=== PATIENT | female | born 1970 | race Caucasian/White ===

== ENCOUNTER 2019-10-31 18:45 | Emergency (ER) | payer OTHER ==
[~2019-10-31] VITALS: Ht 165.1 cm; Wt 98.0 kg
--- NOTE | 2019-10-31 18:51 | PHYS DOC ---
Past History Past Medical History: GERD, Hypertension, Hyperthyroid, Hypothyroid, Other Adult General Chief Complaint Chief Complaint: ".. I was at [facility] earlier today.. but I still got this pain and burning in my chest... " ".. They did a strep test was negative... 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 and take meds for that.. but I have been taking elderberry extract.. and I just read it can cause thyroid inflammation... " HPI HPI Patient is a 49 year old female who presents with above hx and complaints of so re throat. Patient seen at [facility] where she follows for care. Patient also follows with - Endocrine, for her Main thyroiditis. Strep test at [facility] was reportedly negative. No hx of specific ill contacts. Pt. does have history of GERD. Patient denies any history of cardiac issues. Patient did not receive flu vaccination this season. No history immunosuppression. . Denies any tarry stools. No change in her home medications Review of Systems Review of Systems Constitutional: Denies fever or chills [] Eyes: Denies change in visual acuity, redness, or eye pain [] HENT: Denies nasal congestion. Complaints of sore throat [] Respiratory: Denies cough or shortness of breath [] Cardiovascular: No additional information not addressed in HPI [] GI: Denies abdominal pain, nausea, vomiting, bloody stools or diarrhea [. Has complaints of reflux type symptoms : Denies dysuria or hematuria [] Musculoskeletal: Denies back pain or joint pain [] Integument: Denies rash or skin lesions [] Neurologic: Denies headache, focal weakness or sensory changes [] Endocrine: Denies polyuria or polydipsia [] All other systems were reviewed and found to be within normal limits, except as documented in this note. Family History Family History Noncontributory to presentation Current Medications Current Medications See nursing for home meds Allergies Allergies No known drug allergies Physical Exam Physical Exam Constitutional: Moderate acute distress, non-toxic appearance. [] HENT: Normocephalic, atraumatic, bilateral external ears normal, oropharynx moist, no oral exudates, nose swollen turbinates with mild rhinorrhea that is clear. Moderate injection of pharynx Eyes: PERRLA, EOMI, conjunctiva normal, no discharge. [] Neck: Normal range of motion, no tenderness, supple, no stridor. Thyroid is full. Not tender to touch or inflamed. No adenopathy Cardiovascular:Heart rate regular rhythm, no murmur [] Lungs & Thorax: Bilateral breath sounds equal apex auscultation [] Abdomen: Bowel sounds normal, soft, no tenderness, no masses, no pulsatile masses. Obese. Skin: Warm, dry, no erythema, no rash. [] Back: No tenderness, no CVA tenderness. [] Extremities: No tenderness, no cyanosis, no clubbing, ROM intact, no edema. [] Neurologic: Alert and oriented X 3, normal motor function, normal sensory function, no focal deficits noted. [] Psychologic: Affect anxious, judgement normal, mood normal. [] EKG EKG My interpretation EKG shows a sinus rhythm at 72 bpm. Does have a leftward axis. No findings acute STEMI with contralateral changes[] Radiology/Procedures Radiology/Procedures [][place] [address] IMAGING REPORT Signed PATIENT: QUEEINE MARQUES ACCOUNT: [id number] : 1970 LOCATION: ER AGE: 49 SEX: F EXAM STATUS: REG ER ORD. PHYSICIAN: HODAN ELKINS MD REASON: Chest and throat pain with burning sensation PROCEDURE: CHEST PA & LATERAL Exam: Chest 2 views INDICATION: Chest and throat pain with burning sensation TECHNIQUE: Frontal and lateral views the chest Comparisons: None FINDINGS: The cardiomediastinal silhouette and pulmonary vessels are within normal limits. The lung and pleural spaces are clear. IMPRESSION: No acute cardiopulmonary process. Electronically signed by: Angle Rendon MD (10/31/2019 8:29 PM) [id number] DICTATED AND SIGNED BY: ANGLE RENDON MD DATE: 10/31/192028 CC: HODAN ELKINS MD; JOHNNY FRANCIS MD ~ Course & Med Decision Making Course & Med Decision Making Pertinent Labs and Imaging studies reviewed. (See chart for details) Patient push fruit juices. Get adequate rest. Take Tylenol and ibuprofen for discomfort. Take antacids and practice GERD protocol. Stop use of the liver extract. Follow-up TSH labs. Follow-up at [facility]. Follow-up with endocrinology. Practice self isolation/self quarantine. Avoid crowds. Avoid travel. Follow-up with [facility] guidelines and recommendations per [place] . Use liquid ibuprofen and/or liquid Benadryl for topical relief of sore throat. Return if any concerns. Impression: 1. Chest Pain 2. GERD 3. Tobacco Use 4. History of Main's disease 5. Mild hypokalemia 3.2 [] Dragon Disclaimer Dragon Disclaimer This electronic medical record was generated, in whole or in part, using a voice recognition dictation system. Departure Departure: Disposition: HOME/RESIDENCE PRIOR TO ADM Condition: STABLE Referrals: JOHNNY FRANCIS MD (PCP) Scripts Acetaminophen (ACETAMINOPHEN) 500 Mg Tablet 1000 MG PO QIDPRN PRN for fever or discomfort, #120 TAB Prov: HODAN ELKINS MD 10/31/19 Ibuprofen (Ibuprofen) 100 Mg/5 Ml Oral.susp 200 MG PO qidp for topical pain relief of throat, #120 LIQUID Prov: HODAN ELKINS MD 10/31/19 Diphenhydramine Hcl (BENADRYL ALLERGY) 12.5 Mg/5 Ml Liquid 25 MG PO qidip for topical pain relief of throat, #120 LIQUID Prov: HODAN ELKINS MD 10/31/19 Dragon Disclaimer This chart was dictated in whole or in part using Voice Recognition software in a busy, high-work load, and often noisy Emergency Department environment. It may contain unintended and wholly unrecognized errors or omissions. HODAN ELKINS MD Oct 31, 2019 18:53
[2019-10-31] MEDS ORDERED: IV RINGERS SOLUTION,LACTATED 1,000 ML IV SCH (19:28)
[2019-10-31] MEDS ORDERED: ASPIRIN 81 MG TAB.CHEW PO ONE (19:30)
[2019-10-31] MEDS ORDERED: FAMOTIDINE 20 MG/2 ML VIAL IVP ONE (19:30)
[2019-10-31 19:43] LABS: BASO # 0.1 x10^3/uL (0.0-0.2); BASO % 1 % (0-3); EOS # 0.2 x10^3/uL (0.0-0.7); EOS % 1 % (0-3); HEMATOCRIT 42.3 % (36.0-47.0); HEMOGLOBIN 14.4 g/dL (12.0-15.5); LYMPH % 19 % (24-48); MEAN CORPUSCULAR HEMOGLOBIN 29 pg (25-35); MEAN CORPUSCULAR HGB CONC 34 g/dL (31-37); MEAN CORPUSCULAR VOLUME 86 fL (79-100); MONO # 0.8 x10^3/uL (0.0-1.1); MONO % 7 % (0-9); NEUT # 7.6 x10^3uL (1.8-7.7); NEUT % 72 % (31-73); PLATELET COUNT 283 x10^3/uL (140-400); RED CELL DISTRIBUTION WIDTH 13.5 % (11.5-14.5); WHITE BLOOD COUNT 10.5 x10^3/uL (4.0-11.0)
--- NOTE | 2019-10-31 19:50 | EKG ---
[address] [address] Test Date: 2019-10-31 Test Time: 19:10:32 Pat Name: QUEENIE MARQUES Department: Room: Gender: F Refund Clerk: : 1970 Requested By: HODAN ELKINS Order Number: [id number] Reading MD: Measurements Intervals [place] Rate: 72 P: 25 RI: 164 QRS: -3 QRSD: 90 T: 41 QT: 372 QTc: 409 Interpretive Statements SINUS RHYTHM LEFTWARD AXIS R-S TRANSITION ZONE IN V LEADS DISPLACED TO THE LEFT OTHERWISE NORMAL ECG RI6.01 No previous ECG available for comparison
[2019-10-31 19:57] LABS: AMPHETAMINE/METHAMPHETAMINE NEG (NEG); BARBITURATES NEG (NEG); BENZODIAZEPINES NEG (NEG); CANNABINOIDS NEG (NEG); COCAINE NEG (NEG); CREATININE 0.7 mg/dL (0.6-1.0); GFR 88.9; METHADONE NEG (NEG); OPIATES NEG (NEG); PHENCYCLIDINE NEG (NEG); POTASSIUM 3.2 mmol/L (3.5-5.1)
[2019-10-31] MEDS ORDERED: LIDO:MAALOX 1:1 20 ML SINGLE DOSE. PO ONE (20:00)
[2019-10-31 20:05] LABS: BILIRUBIN,URINE NEG (NEG); CLARITY,URINE CLEAR; COLOR,URINE YELLOW; GLUCOSE,URINE NEG (NEG); NITRITE,URINE NEG (NEG); UROBILINOGEN,URINE 0.2 mg/dL (0.2 mg/dL)
[2019-10-31 20:06] LABS: BACTERIA,URINE FEW /HPF (0-FEW); SQUAMOUS EPITHELIAL CELL,UR MANY /LPF; WBC,URINE OCC /HPF (0-4)
[2019-10-31 20:07] LABS: ALBUMIN 3.5 g/dL (3.4-5.0); DIRECT BILIRUBIN 0.1 mg/dL (0.0-0.2); TOTAL BILIRUBIN 0.2 mg/dL (0.2-1.0); TOTAL PROTEIN 7.4 g/dL (6.4-8.2)
--- NOTE | 2019-10-31 20:32 | RAD ---
Exam: Chest 2 views INDICATION: Chest and throat pain with burning sensation TECHNIQUE: Frontal and lateral views the chest Comparisons: None FINDINGS: The cardiomediastinal silhouette and pulmonary vessels are within normal limits. The lung and pleural spaces are clear. IMPRESSION: No acute cardiopulmonary process. Electronically signed by: Angle Hoang MD (10/31/2019 8:29 PM) [id number]
[2019-10-31 20:39] LABS: INFLUENZA A PATIENT NEGATIVE (NEGATIVE); INFLUENZA B PATIENT NEGATIVE (NEGATIVE)
[2019-10-31] MEDS ORDERED: ACET500T68 PO (21:00)
[2019-10-31] MEDS ORDERED: IBUP100O27 PO (21:00)
[2019-10-31] MEDS ORDERED: predniSONE 10 MG TABLET PO ONE (21:00)
[2019-10-31] MEDS ORDERED: DIPH-121 PO (21:00)
[2019-10-31 21:27] VITALS: BP 140/75
[2019-11-01 18:48] LABS: THYROID STIM HORMONE (TSH) 4.41 uIU/mL (0.358-3.740)
== END 2019-10-31 21:30 | disposition home or self-care (01) ==
LOC: ER 18:45
DX: R07.89 Other chest pain (principal); K21.9 Gastro-esophageal reflux disease without esophagitis; E87.6 Hypokalemia; E06.3 Autoimmune thyroiditis; I10 Essential (primary) hypertension; E03.9 Hypothyroidism, unspecified; E78.5 Hyperlipidemia, unspecified
CPT/HCPCS: 36415; 71046; 80048; 80061; 80076; 80307; 81001; 83690; 83735; 83880; 84443; 84484; 85025; 85379; 85610; 85730; 87804; 93005; 96374; 99285; J3490; J7120; J7512